=== PATIENT | female | born 1940 | race Caucasian/White ===

== ENCOUNTER → 2019-09-21 | Outpatient (CLI) | payer MEDICARE ==
[~2019-09-21] MED LIST: Carafate1 GM/10 ML PT; Cephalexin250 MG/5 M PT; ONDA4ODT MM
[2019-09-21 16:52] LABS: Hematocrit 27.8 % (33.0-51.0); Hemoglobin 8.4 g/dL (11.5-16.0); Mean Corpuscular HGB 27.9 pg (26.0-34.0); Mean Corpuscular HGB Conc 30.2 g/dL (31.5-36.5); Mean Corpuscular Volume 92 fL (80-100); Mean Platelet Volume 11.3 fL (9.1-12.4); Platelet Count 647 K/mm3 (150-400); RDW Standard Deviation 53.4 fL (35.1-46.3); Red Blood Cell Count 3.01 M/mm3 (3.80-5.20); White Blood Cell Count 7.85 K/mm3 (4.00-11.30)
[2019-09-21 18:10] LABS: Alanine Aminotransfer (ALT/SGP 56 U/L (12-78); Albumin, Blood 1.4 g/dL (3.4-5.0); Albumin/Globulin Ratio 0.3 (0.8-1.8); Alk Phos 939 U/L (50-136); Anion Gap 4 mmol/L (6-16); Aspartate Aminotrans (AST/SGOT 43 U/L (12-37); Bilirubin, Total 0.2 mg/dL (0.1-1.0); Blood Urea Nitrogen 28 mg/dL (8-24); Bun/Creatinine Ratio 31.1 (12.0-20.0); CO2, Blood 29 mmol/L (21-32); Calcium, Blood 8.1 mg/dL (8.5-10.1); Chloride, Blood 101 mmol/L (98-108); Globulin, Blood 4.6 g/dL (2.2-4.0); Glomerular Filtration Rate >60 (60-); Glucose, Blood 203 mg/dL (70-99); Prealbumin, Blood 11.6 mg/dL (20.0-40.0); Sodium, Blood 134 mmol/L (136-145)
== END ==
LOC: LAB HH 14:43 → LAB SHORT 14:43
PROVIDERS: Family Medicine
DX: J69.0 Pneumonitis due to inhalation of food and vomit (principal); E46 Unspecified protein-calorie malnutrition; E10.42 Type 1 diabetes mellitus with diabetic polyneuropathy
CPT/HCPCS: 80053; 84134; 85027

== ENCOUNTER 2019-10-02 12:26 | Emergency (ER) | payer MEDICARE ==
[~2019-10-02] VITALS: Ht 175.3 cm; Wt 104.3 kg
[2019-10-02 12:57] LABS: BASOPHILS ABSOLUTE AUTO 0.07 K/mm3 (0.00-0.23); BASOPHILS PERCENT AUTO 1 % (0-2); EOSINOPHILS ABSOLUTE AUTO 0.04 K/mm3 (0.00-0.68); EOSINOPHILS PERCENT AUTO 0 % (0-6); Hematocrit 31.9 % (33.0-51.0); Hemoglobin 9.9 g/dL (11.5-16.0); IMMATURE GRAN ABSOLUTE AUTO 0.09 K/mm3 (0.00-0.10); IMMATURE GRAN PERCENT AUTO 1 % (0-1); LYMPHOCYTES ABSOLUTE AUTO 2.14 K/mm3 (0.84-5.20); LYMPHOCYTES PERCENT AUTO 24 % (21-46); MONOCYTES ABSOLUTE AUTO 0.78 K/mm3 (0.16-1.47); MONOCYTES PERCENT AUTO 9 % (4-13); Mean Corpuscular HGB 26.8 pg (26.0-34.0); Mean Corpuscular Volume 86 fL (80-100); Mean Platelet Volume 11.2 fL (9.1-12.4); NEUTROPHILS PERCENT AUTO 66 % (41-73); Platelet Count 518 K/mm3 (150-400); RDW Coefficient Variation 15.2 % (11.7-14.2); RDW Standard Deviation 48.2 fL (35.1-46.3); White Blood Cell Count 9.02 K/mm3 (4.00-11.30)
[2019-10-02 13:13] LABS: Alanine Aminotransfer (ALT/SGP 42 U/L (12-78); Albumin, Blood 1.8 g/dL (3.4-5.0); Albumin/Globulin Ratio 0.4 (0.8-1.8); Alk Phos 608 U/L (50-136); Anion Gap 4 mmol/L (6-16); Aspartate Aminotrans (AST/SGOT 38 U/L (12-37); Bilirubin, Total 0.3 mg/dL (0.1-1.0); Blood Urea Nitrogen 24 mg/dL (8-24); Bun/Creatinine Ratio 30.1 (12.0-20.0); CO2, Blood 31 mmol/L (21-32); Calcium, Blood 8.6 mg/dL (8.5-10.1); Chloride, Blood 102 mmol/L (98-108); Globulin, Blood 4.9 g/dL (2.2-4.0); Glomerular Filtration Rate >60 (60-); Glucose, Blood 266 mg/dL (70-99); Potassium, Blood 4.4 mmol/L (3.5-5.5); Sodium, Blood 137 mmol/L (136-145); Total Protein, Blood 6.7 g/dL (6.4-8.2)
[2019-10-02] MEDS ORDERED: Cephalexin250 MG/5 M PT (15:19)
[2019-10-02] MEDS ORDERED: Carafate1 GM/10 ML PT (15:19)
[2019-10-02] MEDS ORDERED: ONDA4ODT MM (16:07)
[2019-10-02 17:01] LABS: Source, Urine Catheter
[2019-10-02 17:04] LABS: Bilirubin, Urine Neg (Neg); Blood, Urine 3+ (Neg); Glucose Qualitative, Urine 2+ (Neg); Ketones, Urine Neg (Neg); Leukocyte Esterase, Urine 3+ (Neg); Nitrite, Urine Neg (Neg); Protein, Urine 2+ (Neg); Urobilinogen, Urine NORM (Normal)
[2019-10-02 17:21] LABS: Appearance, Urine Hazy (Clear); Color, Urine Pale Yellow (P-Yellow)
[2019-10-02 17:22] LABS: Bacteria Many /hpf; Red Blood Cells, Urine Not Seen /hpf (0-2); Squamous Epithelial Cells Not Seen /hpf (Few); White Blood Cells, Urine TNTC /hpf (0-5)
== END 2019-10-02 17:37 | disposition home or self-care (01) ==
LOC: ER 12:26
PROVIDERS: Emergency Medicine; Physician Assistant
DX: K29.70 Gastritis, unspecified, without bleeding (principal); N39.0 Urinary tract infection, site not specified; Z88.2 Allergy status to sulfonamides; Z88.5 Allergy status to narcotic agent; Z88.8 Allergy status to other drugs, medicaments and biological substances; Z87.01 Personal history of pneumonia (recurrent)
CPT/HCPCS: 36415; 51701; 51798; 74176; 80053; 81001; 85025; 86850; 86900; 86901; 87077; 87086; 87186; 93005; 93010; 96374-59; 96376-59; 99285-25; J2405

== ENCOUNTER → 2019-11-23 | Outpatient (CLI) | payer MEDICARE ==
[2019-11-23 19:14] LABS: Hematocrit 29.6 % (33.0-51.0); Hemoglobin 9.1 g/dL (11.5-16.0); Mean Corpuscular HGB 24.4 pg (26.0-34.0); Mean Corpuscular HGB Conc 30.7 g/dL (31.5-36.5); Mean Corpuscular Volume 79 fL (80-100); Mean Platelet Volume 11.7 fL (9.1-12.4); Platelet Count 591 K/mm3 (150-400); RDW Coefficient Variation 16.1 % (11.7-14.2); Red Blood Cell Count 3.73 M/mm3 (3.80-5.20); White Blood Cell Count 11.86 K/mm3 (4.00-11.30)
[2019-11-23 20:31] LABS: Alanine Aminotransfer (ALT/SGP 133 U/L (12-78); Albumin, Blood 2.2 g/dL (3.4-5.0); Albumin/Globulin Ratio 0.4 (0.8-1.8); Alk Phos 873 U/L (50-136); Anion Gap 8 mmol/L (6-16); Aspartate Aminotrans (AST/SGOT 45 U/L (12-37); Bilirubin, Total 0.1 mg/dL (0.1-1.0); Blood Urea Nitrogen 37 mg/dL (8-24); Bun/Creatinine Ratio 44.1 (12.0-20.0); CO2, Blood 26 mmol/L (21-32); Chloride, Blood 101 mmol/L (98-108); Creatinine, Blood 0.84 mg/dL (0.40-1.00); Glomerular Filtration Rate >60 (60-); Glucose, Blood 90 mg/dL (70-99); Potassium, Blood 4.1 mmol/L (3.5-5.5); Sodium, Blood 135 mmol/L (136-145); Total Protein, Blood 7.2 g/dL (6.4-8.2)
== END | disposition home or self-care (01) ==
LOC: LAB HH 18:15
PROVIDERS: Specialist
DX: E10.42 Type 1 diabetes mellitus with diabetic polyneuropathy (principal); D50.8 Other iron deficiency anemias; I10 Essential (primary) hypertension
CPT/HCPCS: 80053; 82728; 85027

== ENCOUNTER → 2019-12-01 | Outpatient (CLI) | payer MEDICARE ==
[~2019-12-01] MED LIST changes: +BUME2 PO; +FURO20; +GABA100 PO; +HUMALOG100 UNIT/1; +HYDMOR2; +Ipratropium Brom5 GM; +LIDO700A20 TOP; +MELATONIN5 M1; +METO50ER PO; +MIRALAX17 GM PO; +MULTIPLE VITAM1 EACH; +OXYC10ER
[2019-12-01 21:14] LABS: Bilirubin, Urine Neg (Neg); Blood, Urine Neg (Neg); Glucose Qualitative, Urine Neg (Neg); Ketones, Urine Neg (Neg); Leukocyte Esterase, Urine 2+ (Neg); Nitrite, Urine Neg (Neg); Protein, Urine Neg (Neg); Urobilinogen, Urine NORM (Normal)
[2019-12-01 21:36] LABS: Appearance, Urine Clear (Clear); Color, Urine Yellow (P-Yellow)
[2019-12-01 21:37] LABS: Bacteria Many /hpf; Red Blood Cells, Urine Not Seen /hpf (0-2); Squamous Epithelial Cells Not Seen /hpf (Few); White Blood Cells, Urine 50-100 /hpf (0-5)
== END | disposition home or self-care (01) ==
LOC: EDSTATUS 13:39 → LAB HH 19:44
PROVIDERS: Family Medicine
DX: N39.0 Urinary tract infection, site not specified (principal)
CPT/HCPCS: 81001; 87077; 87086; 87186

== ENCOUNTER 2019-12-02 00:18 | Day surgery (SDC) | payer MEDICARE ==
[~2019-12-02 00:18] MED LIST changes: -BUME2 PO; -FURO20; -GABA100 PO; -HUMALOG100 UNIT/1; -HYDMOR2; -Ipratropium Brom5 GM; -LIDO700A20 TOP; -MELATONIN5 M1; -METO50ER PO; -MIRALAX17 GM PO; -MULTIPLE VITAM1 EACH; -OXYC10ER
== END 2019-12-02 11:33 | disposition home or self-care (01) ==
LOC: ATC 00:18
DX: D50.8 Other iron deficiency anemias (principal); I10 Essential (primary) hypertension; E66.9 Obesity, unspecified; J45.909 Unspecified asthma, uncomplicated; E10.42 Type 1 diabetes mellitus with diabetic polyneuropathy; K21.9 Gastro-esophageal reflux disease without esophagitis; T81.43XD Infection following a procedure, organ and space surgical site, subsequent encounter; K65.1 Peritoneal abscess; S42.302D Unspecified fracture of shaft of humerus, left arm, subsequent encounter for fracture with routine healing; Z79.82 Long term (current) use of aspirin; Z79.899 Other long term (current) drug therapy; Z88.2 Allergy status to sulfonamides; Z88.5 Allergy status to narcotic agent; Z88.8 Allergy status to other drugs, medicaments and biological substances; Z68.34 Body mass index [BMI] 34.0-34.9, adult
CPT/HCPCS: 96365; J2916

== ENCOUNTER 2019-12-07 00:33 | Day surgery (SDC) | payer MEDICARE ==
[2019-12-07] MEDS ORDERED: OXYC10ER (15:24)
[2019-12-07] MEDS ORDERED: FURO20 (15:24)
[2019-12-07] MEDS ORDERED: GABA100 PO (15:25)
[2019-12-07] MEDS ORDERED: HUMALOG100 UNIT/1 (15:25)
[2019-12-07] MEDS ORDERED: HYDMOR2 (15:28)
[2019-12-07] MEDS ORDERED: Ipratropium Brom5 GM (15:28)
[2019-12-07] MEDS ORDERED: LIDO700A20 TOP (15:29)
[2019-12-07] MEDS ORDERED: MELATONIN5 M1 (15:29)
[2019-12-07] MEDS ORDERED: MIRALAX17 GM PO (15:29)
[2019-12-07] MEDS ORDERED: METO50ER PO (15:29)
[2019-12-07] MEDS ORDERED: MULTIPLE VITAM1 EACH (15:30)
== END 2019-12-07 22:55 | disposition home or self-care (01) ==
LOC: WOUND 00:33
DX: T81.31XD Disruption of external operation (surgical) wound, not elsewhere classified, subsequent encounter (principal); I10 Essential (primary) hypertension; E10.51 Type 1 diabetes mellitus with diabetic peripheral angiopathy without gangrene; Z88.2 Allergy status to sulfonamides; Z88.5 Allergy status to narcotic agent; Z88.8 Allergy status to other drugs, medicaments and biological substances; Z79.899 Other long term (current) drug therapy
CPT/HCPCS: G0463

== ENCOUNTER 2019-12-14 00:49 | Day surgery (SDC) | payer MEDICARE ==
[~2019-12-14 00:49] MED LIST changes: +BUME2 PO; +FURO20; +GABA100 PO; +HUMALOG100 UNIT/1; +HYDMOR2; +Ipratropium Brom5 GM; +LIDO700A20 TOP; +MELATONIN5 M1; +METO50ER PO; +MIRALAX17 GM PO; +MULTIPLE VITAM1 EACH; +OXYC10ER
== END 2019-12-14 12:57 | disposition home or self-care (01) ==
LOC: ATC 00:49
DX: D50.8 Other iron deficiency anemias (principal); E10.42 Type 1 diabetes mellitus with diabetic polyneuropathy; S27.3 Other and unspecified injuries of lung; S42.292D Other displaced fracture of upper end of left humerus, subsequent encounter for fracture with routine healing; K56.2 Volvulus; I10 Essential (primary) hypertension; R53.1 Weakness
CPT/HCPCS: 96365; J2916

== ENCOUNTER 2019-12-14 01:03 | Day surgery (SDC) | payer MEDICARE | END 2019-12-14 23:22 | disposition home or self-care (01) | LOC: WOUND 01:03 | DX: T81.31XD Disruption of external operation (surgical) wound, not elsewhere classified, subsequent encounter (principal); E10.51 Type 1 diabetes mellitus with diabetic peripheral angiopathy without gangrene; I10 Essential (primary) hypertension; Z79.899 Other long term (current) drug therapy | CPT/HCPCS: G0463 ==

== ENCOUNTER 2019-12-17 00:43 | Day surgery (SDC) | payer MEDICARE | END 2019-12-17 14:53 | disposition home or self-care (01) | LOC: ATC 00:43 | DX: D50.8 Other iron deficiency anemias (principal); E10.42 Type 1 diabetes mellitus with diabetic polyneuropathy; S27.3 Other and unspecified injuries of lung; S42.292D Other displaced fracture of upper end of left humerus, subsequent encounter for fracture with routine healing; K56.2 Volvulus; I10 Essential (primary) hypertension; R53.1 Weakness; Z88.5 Allergy status to narcotic agent; Z88.2 Allergy status to sulfonamides; Z88.8 Allergy status to other drugs, medicaments and biological substances; Z79.899 Other long term (current) drug therapy | CPT/HCPCS: 96365; J2916 ==

== ENCOUNTER 2019-12-21 00:12 | Day surgery (SDC) | payer MEDICARE ==
[2019-12-21 14:33] LABS: Hematocrit 31.3 % (33.0-51.0); Hemoglobin 9.8 g/dL (11.5-16.0); Mean Corpuscular HGB 24.6 pg (26.0-34.0); Mean Corpuscular HGB Conc 31.3 g/dL (31.5-36.5); Mean Corpuscular Volume 79 fL (80-100); Mean Platelet Volume 11.9 fL (9.1-12.4); Platelet Count 408 K/mm3 (150-400); RDW Coefficient Variation 19.1 % (11.7-14.2); RDW Standard Deviation 54.3 fL (35.1-46.3); Red Blood Cell Count 3.98 M/mm3 (3.80-5.20)
[2019-12-21 14:40] LABS: Albumin, Blood 2.9 g/dL (3.4-5.0); Albumin/Globulin Ratio 0.7 (0.8-1.8); Bilirubin, Total 0.3 mg/dL (0.1-1.0); Bun/Creatinine Ratio 44.8 (12.0-20.0); Calcium, Blood 8.8 mg/dL (8.5-10.1); Creatinine, Blood 1.16 mg/dL (0.40-1.00); Globulin, Blood 4.1 g/dL (2.2-4.0); Potassium, Blood 4.2 mmol/L (3.5-5.5)
== END 2019-12-21 15:00 | disposition home or self-care (01) ==
LOC: ATC 00:12
PROVIDERS: Family Medicine
DX: D50.8 Other iron deficiency anemias (principal); E10.42 Type 1 diabetes mellitus with diabetic polyneuropathy; S27.3 Other and unspecified injuries of lung; S42.292D Other displaced fracture of upper end of left humerus, subsequent encounter for fracture with routine healing; K56.2 Volvulus; I10 Essential (primary) hypertension; R53.1 Weakness; I25.10 Atherosclerotic heart disease of native coronary artery without angina pectoris; Z88.2 Allergy status to sulfonamides; Z88.8 Allergy status to other drugs, medicaments and biological substances; Z88.5 Allergy status to narcotic agent; E44.0 Moderate protein-calorie malnutrition; Z79.899 Other long term (current) drug therapy
CPT/HCPCS: 80053; 82728; 85027; J2916

== ENCOUNTER 2019-12-21 00:22 | Day surgery (SDC) | payer MEDICARE | END 2019-12-21 22:55 | disposition home or self-care (01) | LOC: WOUND 00:22 | DX: T81.31XD Disruption of external operation (surgical) wound, not elsewhere classified, subsequent encounter (principal); I10 Essential (primary) hypertension; E10.51 Type 1 diabetes mellitus with diabetic peripheral angiopathy without gangrene; Z79.899 Other long term (current) drug therapy ==

== ENCOUNTER 2019-12-24 00:02 | Day surgery (SDC) | payer MEDICARE | END 2019-12-24 11:50 | disposition home or self-care (01) | LOC: ATC 00:02 | DX: D50.8 Other iron deficiency anemias (principal); E10.42 Type 1 diabetes mellitus with diabetic polyneuropathy; S27.3 Other and unspecified injuries of lung; S42.292D Other displaced fracture of upper end of left humerus, subsequent encounter for fracture with routine healing; K56.2 Volvulus; I10 Essential (primary) hypertension; R53.1 Weakness; J45.909 Unspecified asthma, uncomplicated; K21.9 Gastro-esophageal reflux disease without esophagitis; Z88.5 Allergy status to narcotic agent; Z88.2 Allergy status to sulfonamides; Z88.8 Allergy status to other drugs, medicaments and biological substances; Z79.899 Other long term (current) drug therapy ==

== ENCOUNTER 2020-01-04 00:29 | Day surgery (SDC) | payer MEDICARE | END 2020-01-04 22:51 | disposition home or self-care (01) | LOC: WOUND 00:29 | DX: T81.31XD Disruption of external operation (surgical) wound, not elsewhere classified, subsequent encounter (principal); E10.51 Type 1 diabetes mellitus with diabetic peripheral angiopathy without gangrene; I10 Essential (primary) hypertension; Z79.899 Other long term (current) drug therapy | CPT/HCPCS: G0463 ==

== ENCOUNTER 2020-01-11 13:17 | Emergency (ER) | payer MEDICARE ==
[~2020-01-11] VITALS: Ht 175.3 cm; Wt 113.4 kg
== END 2020-01-11 16:03 | disposition home or self-care (01) ==
LOC: ER 13:17
DX: K94.23 Gastrostomy malfunction (principal); Z88.2 Allergy status to sulfonamides; Z88.5 Allergy status to narcotic agent; Z88.8 Allergy status to other drugs, medicaments and biological substances; Z79.4 Long term (current) use of insulin; Z79.899 Other long term (current) drug therapy; Z87.891 Personal history of nicotine dependence
CPT/HCPCS: 43762; 49465; 99282-25; Q9963

== ENCOUNTER → 2021-12-22 | Outpatient (CLI) | payer MEDICARE ==
[2021-12-22 16:07] LABS: Hematocrit 33.4 % (33.0-51.0); Hemoglobin 10.4 g/dL (11.5-16.0); Mean Corpuscular HGB 27.1 pg (26.0-34.0); Mean Corpuscular HGB Conc 31.1 g/dL (31.5-36.5); Mean Corpuscular Volume 87 fL (80-100); Mean Platelet Volume 11.5 fL (9.1-12.4); Platelet Count 493 K/mm3 (150-400); RDW Coefficient Variation 15.9 % (11.7-14.2); RDW Standard Deviation 50.7 fL (35.1-46.3); Red Blood Cell Count 3.84 M/mm3 (3.80-5.20); White Blood Cell Count 9.23 K/mm3 (4.00-11.30)
[2021-12-22 16:09] LABS: Albumin, Blood 2.2 g/dL (3.4-5.0); Albumin/Globulin Ratio 0.6 (0.8-1.8); Bilirubin, Total 0.2 mg/dL (0.1-1.0); Calcium, Blood 8.7 mg/dL (8.5-10.1); Globulin, Blood 3.9 g/dL (2.2-4.0); Potassium, Blood 3.6 mmol/L (3.5-5.5); Total Protein, Blood 6.1 g/dL (6.4-8.2)
== END ==
LOC: LAB SHORT 15:23
PROVIDERS: Family Medicine
DX: I11.0 Hypertensive heart disease with heart failure (principal); E10.42 Type 1 diabetes mellitus with diabetic polyneuropathy; I63.9 Cerebral infarction, unspecified; D50.8 Other iron deficiency anemias; I50.32 Chronic diastolic (congestive) heart failure; C54.1 Malignant neoplasm of endometrium
CPT/HCPCS: 80053; 85027

== ENCOUNTER → 2021-12-26 | Outpatient (CLI) | payer MEDICARE ==
[2021-12-26 16:25] LABS: Hematocrit 31.8 % (33.0-51.0); Mean Corpuscular HGB Conc 31.4 g/dL (31.5-36.5); Mean Corpuscular Volume 86 fL (80-100); Mean Platelet Volume 11.8 fL (9.1-12.4); Platelet Count 457 K/mm3 (150-400); RDW Standard Deviation 51.2 fL (35.1-46.3); White Blood Cell Count 8.13 K/mm3 (4.00-11.30)
[2021-12-26 17:09] LABS: Albumin, Blood 2.3 g/dL (3.4-5.0); Albumin/Globulin Ratio 0.6 (0.8-1.8); Bilirubin, Total 0.2 mg/dL (0.1-1.0); Calcium, Blood 8.5 mg/dL (8.5-10.1); Globulin, Blood 3.8 g/dL (2.2-4.0); Potassium, Blood 3.2 mmol/L (3.5-5.5); Total Protein, Blood 6.1 g/dL (6.4-8.2)
== END | disposition home or self-care (01) ==
LOC: LAB 13:30 → LAB SHORT 13:30
PROVIDERS: Family Medicine
DX: C54.1 Malignant neoplasm of endometrium (principal); I63.9 Cerebral infarction, unspecified; I11.0 Hypertensive heart disease with heart failure; I50.32 Chronic diastolic (congestive) heart failure; E10.42 Type 1 diabetes mellitus with diabetic polyneuropathy; D50.8 Other iron deficiency anemias
CPT/HCPCS: 80053; 85027

== ENCOUNTER → 2022-01-09 | Outpatient (CLI) | payer MEDICARE ==
[2022-01-09 12:28] LABS: Albumin, Blood 2.8 g/dL (3.4-5.0); Albumin/Globulin Ratio 0.7 (0.8-1.8); Bilirubin, Total 0.2 mg/dL (0.1-1.0); Bun/Creatinine Ratio 39.3 (12.0-20.0); Calcium, Blood 9.2 mg/dL (8.5-10.1); Creatinine, Blood 0.97 mg/dL (0.40-1.00); Potassium, Blood 4.8 mmol/L (3.5-5.5); Total Protein, Blood 6.8 g/dL (6.4-8.2)
[2022-01-09 12:33] LABS: Hematocrit 35.6 % (33.0-51.0); Hemoglobin 11.3 g/dL (11.5-16.0); Mean Corpuscular HGB 27.2 pg (26.0-34.0); Mean Corpuscular HGB Conc 31.7 g/dL (31.5-36.5); Mean Corpuscular Volume 86 fL (80-100); Mean Platelet Volume 12.6 fL (9.1-12.4); Platelet Count 416 K/mm3 (150-400); RDW Coefficient Variation 15.9 % (11.7-14.2); RDW Standard Deviation 49.9 fL (35.1-46.3); Red Blood Cell Count 4.16 M/mm3 (3.80-5.20); White Blood Cell Count 6.98 K/mm3 (4.00-11.30)
== END | disposition home or self-care (01) ==
LOC: LAB SHORT 10:28 → LAB 10:28
PROVIDERS: Family Medicine
DX: I13.0 Hypertensive heart and chronic kidney disease with heart failure and stage 1 through stage 4 chronic kidney disease, or unspecified chronic kidney disease (principal); I50.32 Chronic diastolic (congestive) heart failure; N18.31 Chronic kidney disease, stage 3a
CPT/HCPCS: 80053; 85027

== ENCOUNTER → 2022-01-16 | Outpatient (CLI) | payer MEDICARE ==
[2022-01-16 19:10] LABS: Bun/Creatinine Ratio 41.3 (12.0-20.0); Calcium, Blood 9.1 mg/dL (8.5-10.1); Creatinine, Blood 1.09 mg/dL (0.40-1.00)
== END | disposition home or self-care (01) ==
LOC: LAB SHORT 10:30 → LAB 10:30
PROVIDERS: Family Medicine
DX: C54.1 Malignant neoplasm of endometrium (principal); E10.49 Type 1 diabetes mellitus with other diabetic neurological complication; E10.22 Type 1 diabetes mellitus with diabetic chronic kidney disease; I50.32 Chronic diastolic (congestive) heart failure; N18.31 Chronic kidney disease, stage 3a; D63.1 Anemia in chronic kidney disease
CPT/HCPCS: 80048; 82728

== ENCOUNTER → 2022-01-24 | Outpatient (CLI) | payer MEDICARE ==
[2022-01-24 18:00] LABS: BASOPHILS ABSOLUTE AUTO 0.08 K/mm3 (0.00-0.23); BASOPHILS PERCENT AUTO 1 % (0-2); EOSINOPHILS ABSOLUTE AUTO 0.17 K/mm3 (0.00-0.68); EOSINOPHILS PERCENT AUTO 2 % (0-6); Hematocrit 35.6 % (33.0-51.0); Hemoglobin 11.4 g/dL (11.5-16.0); IMMATURE GRAN ABSOLUTE AUTO 0.02 K/mm3 (0.00-0.10); IMMATURE GRAN PERCENT AUTO 0 % (0-1); LYMPHOCYTES ABSOLUTE AUTO 2.41 K/mm3 (0.84-5.20); LYMPHOCYTES PERCENT AUTO 32 % (21-46); MONOCYTES ABSOLUTE AUTO 0.68 K/mm3 (0.16-1.47); MONOCYTES PERCENT AUTO 9 % (4-13); Mean Corpuscular HGB 26.4 pg (26.0-34.0); Mean Corpuscular Volume 82 fL (80-100); Mean Platelet Volume 12.5 fL (9.1-12.4); NEUTROPHILS PERCENT AUTO 55 % (41-73); Platelet Count 423 K/mm3 (150-400); RDW Standard Deviation 48.1 fL (35.1-46.3); Red Blood Cell Count 4.32 M/mm3 (3.80-5.20); White Blood Cell Count 7.46 K/mm3 (4.00-11.30)
[2022-01-24 18:55] LABS: Bun/Creatinine Ratio 51.8 (12.0-20.0); Creatinine, Blood 1.12 mg/dL (0.40-1.00); Potassium, Blood 4.3 mmol/L (3.5-5.5)
== END | disposition home or self-care (01) ==
LOC: LAB 10:35 → LAB SHORT 10:35
PROVIDERS: Family Medicine
DX: I13.0 Hypertensive heart and chronic kidney disease with heart failure and stage 1 through stage 4 chronic kidney disease, or unspecified chronic kidney disease (principal); N17.9 Acute kidney failure, unspecified; N18.31 Chronic kidney disease, stage 3a; I50.9 Heart failure, unspecified; E10.49 Type 1 diabetes mellitus with other diabetic neurological complication
CPT/HCPCS: 80048; 82728; 83036; 85025